=== PATIENT | male | born 1955 | race Caucasian/White ===

== ENCOUNTER → 2022-07-15 | Outpatient (CLI) | payer MEDICARE ==
[~2022-07-15] MED LIST: PROHANCE 279.3MG/ML 15ML VIAL As Ordered ONE; PROHANCE 279.3MG/ML 5ML VIAL As Ordered ONE
== END ==
LOC: M RAD 12:21
PROVIDERS: ATTEND Physician Assistant Medical
DX: H90.A32 Mixed conductive and sensorineural hearing loss, unilateral, left ear with restricted hearing on the contralateral side (principal)
CPT/HCPCS: 70553; A9576

== ENCOUNTER → 2024-03-08 | Outpatient (CLI) | payer MEDICARE ==
[~2024-03-08] MED LIST changes: +ISOVUE-370 76% 100ML VIAL ONE; -PROHANCE 279.3MG/ML 15ML VIAL As Ordered ONE; -PROHANCE 279.3MG/ML 5ML VIAL As Ordered ONE
== END ==
LOC: M PLAIMG 12:18
PROVIDERS: ATTEND Internal Medicine
DX: R59.1 Generalized enlarged lymph nodes (principal)
CPT/HCPCS: 70491; Q9967

== ENCOUNTER → 2024-04-15 | Outpatient (REF) | payer MEDICARE | LOC: M LAB REF 12:01 | PROVIDERS: ATTEND Internal Medicine | DX: R59.0 Localized enlarged lymph nodes (principal) ==

== ENCOUNTER → 2024-04-19 | Outpatient (CLI) | payer MEDICARE ==
[~2024-04-19] MED LIST changes: +ISOVUE-370 76% 100ML VIAL As Ordered ONE; -ISOVUE-370 76% 100ML VIAL ONE
== END ==
LOC: M RAD 15:03
PROVIDERS: ATTEND Otolaryngology
DX: R59.0 Localized enlarged lymph nodes (principal)
CPT/HCPCS: 70491; Q9967

== ENCOUNTER → 2024-04-29 | Outpatient (REF) | payer MEDICARE | LOC: M LAB REF 17:02 | PROVIDERS: ATTEND Otolaryngology | DX: R59.0 Localized enlarged lymph nodes (principal) ==

== ENCOUNTER → 2024-05-14 | Outpatient (CLI) | payer MEDICARE | LOC: M PLARAD 11:52 | PROVIDERS: ATTEND Otolaryngology | DX: C77.0 Secondary and unspecified malignant neoplasm of lymph nodes of head, face and neck (principal) | CPT/HCPCS: 78815; A9552 ==

== ENCOUNTER → 2024-05-16 | Outpatient (CLI) | payer MEDICARE ==
[~2024-05-16] MED LIST changes: +BISO5TAB14 PO; +CLOP75TA2 PO; +COQ150CH PO; +ECOT81TA5 PO; +EZET10TA21 PO; -ISOVUE-370 76% 100ML VIAL As Ordered ONE; +PANT40TA29 PO; +RAMI1.258 PO; +ROSU40TA81 PO
== END ==
LOC: M ONCR 07:41
PROVIDERS: ATTEND General Practice
DX: C09.0 Malignant neoplasm of tonsillar fossa (principal); Z86.718 Personal history of other venous thrombosis and embolism; Z79.02 Long term (current) use of antithrombotics/antiplatelets; Z79.82 Long term (current) use of aspirin; Z79.899 Other long term (current) drug therapy; Z79.811 Long term (current) use of aromatase inhibitors
CPT/HCPCS: 10005; 31575; 88305; G0463

== ENCOUNTER → 2024-05-28 | Outpatient (CLI) | payer MEDICARE ==
[~2024-05-28] MED LIST changes: +OXYC1SOL3 PO; +TRAM50TA2 PO; +ceFAZolin SODIUM 2 GM VIAL As Ordered ONE
[2024-05-28 09:40] VITALS: TEMP 96.6
[2024-05-28] MEDS: fentaNYL 100 MCG/2 ML INJECTION IV PRN (10:53)
[2024-05-28] MEDS: MIDAZOLAM INJ 2MG/2ML VIAL IV PRN (10:53)
[2024-05-28] MEDS: ceFAZolin SODIUM 2 GM in DEXTROSE 5% (D5W) ADV/MINI-BAG 50 ML IV ONE (10:54)
[2024-05-28] MEDS: NS (Normal Saline) 0.9% 1,000 ML IV SCH (10:54)
[2024-05-28] MEDS: LIDOCAINE 1% MDV 20ML VIAL SC SCH (11:01)
[2024-05-28 11:23] VITALS: BP 161/79; O2SAT 96
== END ==
LOC: M IRPRO 09:30
PROVIDERS: ATTEND Specialist
DX: C09.0 Malignant neoplasm of tonsillar fossa (principal)
CPT/HCPCS: 36561; 99152; C1894; J0690; J1642; J2250; J3010

== ENCOUNTER 2024-06-08 06:55 | Emergency (ER) | payer MEDICARE ==
[~2024-06-08] VITALS: Ht 180.3 cm; Wt 82.0 kg
[~2024-06-08 06:55] MED LIST changes: +DEXA4TA PO; +LIDO30CR18 TOP; +ONDA-84 PO; +PROC10TA5 PO; -ceFAZolin SODIUM 2 GM VIAL As Ordered ONE
[2024-06-08] MEDS: NS 500 ML IV ONE (08:53)
[2024-06-08 08:57] LABS: BASO % 0.2 % (0.0-1.0); EOS % 0.1 % (0.0-3.0); HEMATOCRIT 43.3 % (42.0-52.0); HEMOGLOBIN 14.9 g/dl (13.5-17.5); LYMPH % 7.4 % (24.0-44.0); MEAN CORPUSCULAR HEMOGLOBIN 31.4 pg (27.0-33.0); MEAN CORPUSCULAR HGB CONC 34.4 g/dl (32.0-36.5); MEAN CORPUSCULAR VOLUME 91.2 fl (80.0-96.0); MONO # 2.2 10^3/uL (0.0-0.8); MONO % 16.6 % (2.0-8.0); NEUTROPHILS # 9.8 10^3/uL (1.5-8.5); NEUTROPHILS % 75.2 % (36.0-66.0); PLATELET COUNT, AUTOMATED 179 10^3/uL (150-450); RED BLOOD COUNT 4.75 10^6/uL (4.30-6.10)
[2024-06-08] MEDS ORDERED: ISOVUE-370 76% 100ML VIAL As Ordered ONE (09:08)
[2024-06-08 09:32] LABS: CALCIUM LEVEL 8.7 MG/DL (8.3-10.6); CREATININE FOR GFR 1.04 MG/DL (0.70-1.30); GLOMERULAR FILTRATION RATE 77.3 (>42); POTASSIUM SERUM 4.3 MMOL/L (3.5-5.1)
[2024-06-08 09:44] LABS: THYROID STIMULATING HORMONE 0.687 uIU/ML (0.55-4.78)
[2024-06-08 09:45] LABS: FREE T4 1.24 NG/DL (0.89-1.76)
[2024-06-08 11:07] VITALS: O2SAT 96
[2024-06-08 14:07] VITALS: BP 125/65; TEMP 98.7; O2SAT 95
== END 2024-06-08 14:15 | disposition home or self-care (01) ==
LOC: EDBD 06:55 → M ED 06:55
DX: R55 Syncope and collapse (principal); R51.9 Headache, unspecified; C09.9 Malignant neoplasm of tonsil, unspecified; Z92.21 Personal history of antineoplastic chemotherapy; Z92.3 Personal history of irradiation; I25.10 Atherosclerotic heart disease of native coronary artery without angina pectoris; I10 Essential (primary) hypertension; I25.2 Old myocardial infarction; E78.5 Hyperlipidemia, unspecified; K21.9 Gastro-esophageal reflux disease without esophagitis; K22.70 Barrett's esophagus without dysplasia; Z95.1 Presence of aortocoronary bypass graft; Z79.82 Long term (current) use of aspirin; Z79.899 Other long term (current) drug therapy; Z88.8 Allergy status to other drugs, medicaments and biological substances
CPT/HCPCS: 70450; 70491; 80047; 80048; 84439; 84443; 85025; 99285; Q9967

== ENCOUNTER → 2024-06-12 | Outpatient (RCR) | payer MEDICARE | LOC: M ONCR 05-23 07:39 | PROVIDERS: ATTEND General Practice | DX: Z51.0 Encounter for antineoplastic radiation therapy (principal); C09.0 Malignant neoplasm of tonsillar fossa ==

== ENCOUNTER 2024-07-12 08:13 | Outpatient (RCR) | payer MEDICARE ==
[2024-06-24] MEDS: dexAMETHasone 20 MG/5 ML VIAL IV ONE (10:30)
[2024-06-24] MEDS: NS (Normal Saline) 0.9% 1,000 ML IV ONE (10:30)
[2024-07-09] MEDS: NS (Normal Saline) 0.9% 1,000 ML IV ONE (09:30)
[2024-07-09] MEDS: dexAMETHasone 4 MG/ML 1 ML VIAL IV ONE (10:00)
[2024-07-09] MEDS: SODIUM CHLORIDE 0.9% INJ 10 ML SYR IV PRN (10:30)
[~2024-07-12 08:13] MED LIST changes: +NYST-38 PO; +TRAZ1TAB11 PO
[2024-07-12] MEDS ORDERED: FLUC10TA PO (08:27)
[2024-07-12] MEDS: dexAMETHasone 20 MG/5 ML VIAL IV ONE (08:48)
[2024-07-12] MEDS: NS (Normal Saline) 0.9% 1,000 ML IV ONE (08:48)
[2024-07-19] MEDS ORDERED: MAGN200T10 PO (10:00)
[2024-08-20] MEDS ORDERED: ELIQ5TAB PO (09:57)
== END 2024-07-13 ==
LOC: M ONCR 08:13
PROVIDERS: ATTEND General Practice
DX: Z51.0 Encounter for antineoplastic radiation therapy (principal); C09.0 Malignant neoplasm of tonsillar fossa
CPT/HCPCS: 77300; 77334; 77336; 77338; 77386; 93005; 96360; 96361; J1100; J1642

== ENCOUNTER → 2024-09-02 | Outpatient (CLI) | payer MEDICARE ==
[~2024-09-02] MED LIST changes: +ELIQ5TAB PO; +FLUC10TA PO; +MAGN200T10 PO
== END ==
LOC: M ONCR 09:39
PROVIDERS: ATTEND General Practice
DX: C09.0 Malignant neoplasm of tonsillar fossa (principal); Z92.3 Personal history of irradiation

== ENCOUNTER → 2024-10-28 | Outpatient (CLI) | payer MEDICARE ==
[~2024-10-28] MED LIST changes: -EZET10TA21 PO; +EZET10TA57 PO
== END ==
LOC: M PLARAD 14:46
PROVIDERS: ATTEND General Practice
DX: C09.0 Malignant neoplasm of tonsillar fossa (principal)
CPT/HCPCS: 78815; A9552

== ENCOUNTER → 2024-10-30 | Outpatient (CLI) | payer MEDICARE | LOC: M ONCR 10:00 | PROVIDERS: ATTEND General Practice | DX: C09.0 Malignant neoplasm of tonsillar fossa (principal); Z92.21 Personal history of antineoplastic chemotherapy; Z92.3 Personal history of irradiation; Z88.8 Allergy status to other drugs, medicaments and biological substances; Z79.01 Long term (current) use of anticoagulants; Z79.811 Long term (current) use of aromatase inhibitors; Z79.899 Other long term (current) drug therapy; Z79.02 Long term (current) use of antithrombotics/antiplatelets; Z79.82 Long term (current) use of aspirin | CPT/HCPCS: 31575; G0463 ==

== ENCOUNTER → 2024-12-31 | Outpatient (CLI) | payer MEDICARE ==
[~2024-12-31] VITALS: Ht 180.3 cm; Wt 172.7 kg
[~2024-12-31] MED LIST changes: +GABA-1171 PO; +LIDOCAINE 1% MDV 20 ML VIAL SC SCH; +MIDAZOLAM INJ 2 MG/2 ML VIAL IV PRN; +NS (Normal Saline) 0.9% 1,000 ML IV SCH
[2024-12-31 07:40] VITALS: TEMP 97.4
[2024-12-31] MEDS: ceFAZolin SODIUM 2 GM in DEXTROSE 5% (D5W) ADV/MINI-BAG 50 ML IV ONE (08:10)
[2024-12-31 09:15] VITALS: BP 132/77; O2SAT 99
== END ==
LOC: M IRPRO 07:23
PROVIDERS: ATTEND Specialist
DX: C09.9 Malignant neoplasm of tonsil, unspecified (principal)
CPT/HCPCS: 36590; J0688

== ENCOUNTER → 2025-01-30 | Outpatient (CLI) | payer MEDICARE ==
[~2025-01-30] MED LIST changes: -LIDOCAINE 1% MDV 20 ML VIAL SC SCH; -MIDAZOLAM INJ 2 MG/2 ML VIAL IV PRN; -NS (Normal Saline) 0.9% 1,000 ML IV SCH
[2025-01-30 12:23] LABS: PROSTATIC SPECIFIC AG MONITOR 1.23 NG/ML (< 4.00)
[2025-01-30 12:28] LABS: FREE T4 1.07 NG/DL (0.89-1.76)
== END ==
LOC: M ONCR 09:53
PROVIDERS: ATTEND General Practice
DX: C09.9 Malignant neoplasm of tonsil, unspecified (principal); Z79.01 Long term (current) use of anticoagulants; Z79.82 Long term (current) use of aspirin; Z79.899 Other long term (current) drug therapy; Z88.8 Allergy status to other drugs, medicaments and biological substances; Z92.21 Personal history of antineoplastic chemotherapy; Z92.3 Personal history of irradiation
CPT/HCPCS: 31575; 36415; 84153; 84439; 84443; G0463